=== PATIENT | female | born 1955 | race Caucasian/White ===

== ENCOUNTER → 2017-08-15 16:24 | Outpatient (CLI) | payer BC ==
[2014-12-09 14:30] VITALS: BMI 25.0
[~2017-08-15 16:24] MED LIST: CALCIUM 500 + D1 TAB PO; COLACE100 MG PO; ELIQUIS2.5 MG PO; FISH OIL 1,2001 CAP PO; HYDROCODONE-APA1 TAB PO; MILK THISTLE140 MG PO; MS CONTIN15 MG PO; MULTIPLE VITAMI1 TA1 PO; VITAMIN D5000 UNIT PO
== END | disposition home or self-care (01) ==
LOC: D.MAMMO 14:00
DX: Z12.31 Encounter for screening mammogram for malignant neoplasm of breast (principal)

== ENCOUNTER → 2018-08-23 20:14 | Outpatient (CLI) | payer BC ==
[2014-12-09 14:30] VITALS: BMI 25.0
== END | disposition home or self-care (01) ==
LOC: D.MAMMO 15:30
DX: Z12.31 Encounter for screening mammogram for malignant neoplasm of breast (principal)

== ENCOUNTER 2019-08-26 08:00 | Outpatient (CLI) | payer MEDICARE ==
[2014-12-09 14:30] VITALS: BMI 25.0
== END 2019-08-26 23:59 | disposition home or self-care (01) ==
LOC: D.MAMMO 08:00
PROVIDERS: ATTEND Family Medicine
DX: Z12.31 Encounter for screening mammogram for malignant neoplasm of breast (principal)

== ENCOUNTER → 2019-09-26 10:30 | Outpatient (CLI) | payer MEDICARE ==
[2014-12-09 14:30] VITALS: BMI 25.0
== END | disposition home or self-care (01) ==
LOC: D.MAMMO 10:00
PROVIDERS: ATTEND Family Medicine
DX: R92.8 Other abnormal and inconclusive findings on diagnostic imaging of breast (principal)